=== PATIENT | female | born 1955 | race Caucasian/White ===

== ENCOUNTER → 2022-04-26 | Outpatient (CLI) | payer MEDICARE | LOC: LAB SHORT 15:26 | DX: N39.0 Urinary tract infection, site not specified (principal) ==

== ENCOUNTER 2024-04-14 14:58 | Observation (INO) | payer MEDICARE ==
[~2024-04-14] VITALS: Ht 157.5 cm; Wt 54.4 kg
[2024-04-14 15:39] LABS: BASOPHILS ABSOLUTE AUTO 0.07 K/mm3 (0.00-0.23); BASOPHILS PERCENT AUTO 1 % (0-2); EOSINOPHILS ABSOLUTE AUTO 0.04 K/mm3 (0.00-0.68); EOSINOPHILS PERCENT AUTO 1 % (0-6); Hematocrit 40.4 % (33.0-51.0); IMMATURE GRAN ABSOLUTE AUTO 0.02 K/mm3 (0.00-0.10); IMMATURE GRAN PERCENT AUTO 0 % (0-1); LYMPHOCYTES ABSOLUTE AUTO 1.58 K/mm3 (0.84-5.20); LYMPHOCYTES PERCENT AUTO 18 % (21-46); MONOCYTES ABSOLUTE AUTO 1.01 K/mm3 (0.16-1.47); MONOCYTES PERCENT AUTO 12 % (4-13); Mean Corpuscular HGB 31.3 pg (26.0-34.0); Mean Corpuscular HGB Conc 34.7 g/dL (31.5-36.5); Mean Corpuscular Volume 90 fL (80-100); Mean Platelet Volume 11.5 fL (9.1-12.4); NEUTROPHILS PERCENT AUTO 69 % (41-73); Platelet Count 327 K/mm3 (150-400); Red Blood Cell Count 4.47 M/mm3 (3.80-5.20); White Blood Cell Count 8.82 K/mm3 (4.00-11.30)
[2024-04-14] MEDS ORDERED: Mag Sulfate 1 GM/D5% 100ML 100 ML IV ONE (15:45)
[2024-04-14 15:58] LABS: Albumin, Blood 4.3 g/dL (3.4-5.0); Albumin/Globulin Ratio 1.3 (0.8-1.8); Bilirubin, Total 0.6 mg/dL (0.1-1.0); Calcium, Blood 9.7 mg/dL (8.5-10.1); Creatinine, Blood 1.06 mg/dL (0.40-1.00); Globulin, Blood 3.4 g/dL (2.2-4.0); Magnesium, Blood 2.2 mg/dL (1.6-2.4); Potassium, Blood 3.1 mmol/L (3.5-5.5); Total Protein, Blood 7.7 g/dL (6.4-8.2)
[2024-04-14] MEDS ORDERED: Potassium Chloride 20 MEQ TabCR PO ONE ×2 (16:05→19:00)
[2024-04-14 16:12] LABS: Free Thyroxine 0.97 ng/dL (0.70-1.60); Magnesium, Blood 2.3 mg/dL (1.6-2.4)
[2024-04-14] MEDS ORDERED: Lactated Ringer's 500 ML IV ONE (17:35)
[2024-04-14] MEDS ORDERED: Labetalol HCL 5 MG/ML 4ML Injection (Single Dose) IV PRN (17:40)
[2024-04-14] MEDS ORDERED: LORazepam 2 MG/ML 1ML Injection IV PRN (17:45)
[2024-04-14] MEDS ORDERED: Aspirin 325 MG Tab PO ONE (18:00)
[2024-04-14] MEDS ORDERED: Mag Sulfate 1 GM/D5% 100ML 100 ML IV STA (18:04)
[2024-04-14] MEDS ORDERED: LEVSOD25 PO (18:10)
[2024-04-14] MEDS ORDERED: ATOR40TA PO (18:11)
[2024-04-14] MEDS ORDERED: AMIT25 PO (18:11)
[2024-04-14] MEDS ORDERED: NIFE60ER PO (18:12)
[2024-04-14] MEDS ORDERED: LOSA50 PO (18:12)
[2024-04-14] MEDS ORDERED: Lactated Ringer's 1,000 ML IV SCH (18:30)
[2024-04-14 20:06] VITALS: BP 128/43
[2024-04-14] MEDS ORDERED: OMEP20ER PO (20:39)
[2024-04-14] MEDS ORDERED: Amitriptyline HCl 25 MG Tab PO SCH (21:35)
[2024-04-15 04:32] VITALS: BP 166/70
[2024-04-15 05:22] VITALS: BP 142/62
[2024-04-15] MEDS ORDERED: Omeprazole 20 MG CapCR PO SCH (06:00)
[2024-04-15 06:03] LABS: Magnesium, Blood 2.6 mg/dL (1.6-2.4)
[2024-04-15 06:04] LABS: Bun/Creatinine Ratio 12.5 (12.0-20.0); Creatinine, Blood 0.96 mg/dL (0.40-1.00); Potassium, Blood 3.2 mmol/L (3.5-5.5)
[2024-04-15 07:37] VITALS: BP 149/67
--- NOTE | 2024-04-15 07:40 | NUR ---
CADD DRAFTER SUMMARY PT HAS HAD NO CHEST PAIN OR PRESSURE, NO PALPITATIONS, NO DIZZINESS THIS SHIFT. THE ONLY SYMPTOM SHE EXPRESSED WAS SEVERE ANXIETY BUT SHE DID NOT WANT TO BE MEDICATED. WE OFFERED FREQUENT 1 ON 1 ATTENTION AND BEDSIDE CHATS. SHE MISSES HER DOG AND DOESNT WANT TO BE IN THE HOSPITAL. REPEAT EKG DONE THIS SHIFT. SEE PAPER CHART. HER QTC IMPROVED TO 472 AND MD NATH WAS NOTIFIED, PER ORDER TO NOTIFY MD OF NEW QTC INTERVAL. PT IS A VERY POOR HISTORIAN AND HAS SIGNIFICANT STML. TALKED TO ABOUT HER MED REC. MED REC IS FINISHED BEING UPDATED AND MD NOTIFIED. HE SAID THAT DAY SHIFT MD WOULD ADDRESS MED REC TODAY.
[2024-04-15] MEDS ORDERED: Enoxaparin 40 MG/0.4 ML SYR SC SCH (09:00)
[2024-04-15] MEDS ORDERED: POTCHL20ER PO (11:17)
--- NOTE | 2024-04-15 12:01 | NUR ---
DC-[id number] PT BROUGHT DOWN IN STABLE CONDITION IN AND PICKED UP BY FOR DC. PT LEFT WITH ALL BELONGINGS. POTASSIUM RX SENT TO [facility].
[2024-04-16] MEDS ORDERED: HYDHCL25 PO (15:15)
== END 2024-04-15 11:42 | disposition home or self-care (01) ==
LOC: ER 14:58 → MEDS 14:59
PROVIDERS: Emergency Medicine; Nurse Practitioner Acute Care; Physician Assistant; ADMIT Family Medicine
DX: R07.89 Other chest pain (principal); R94.31 Abnormal electrocardiogram [ECG] [EKG]; E87.6 Hypokalemia; R01.1 Cardiac murmur, unspecified; I10 Essential (primary) hypertension; E78.5 Hyperlipidemia, unspecified; K21.9 Gastro-esophageal reflux disease without esophagitis; Z79.899 Other long term (current) drug therapy
CPT/HCPCS: 36415; 71046; 80048; 80053; 83735; 83880; 84439; 84443; 84484; 85025; 85379; 93005; 93010; 93306; 96365; 96366; 99285-25; A9270; G0378; J3475; J7120